=== PATIENT | male | born 1985 | race Caucasian/White ===

== ENCOUNTER 2019-07-11 02:31 | Emergency (ER) | payer OTHER ==
[2019-07-11] MEDS ORDERED: IBUPROFEN 600 MG TABLET (FP) PO ONE ×2 (02:53→02:57)
[2019-07-11 02:57] VITALS: BP 129/71; PULSE 105; TEMP 100.4; BMI 27.4
--- NOTE | 2019-07-11 03:22 | PDOC ---
Attending Attestation - Resident Resident Name: Mimi Man - ED Attending Attestation I have performed the following: I have examined & evaluated the patient, The case was reviewed & discussed with the resident, I agree w/resident's findings & plan - HPI HPI: 07/11/19 see resident hpi - Physicial Exam PE: 07/11/19 03:21 agree with resident exam - Medical Decision Making 07/11/19 03:21 33-year-old male with body aches fever and sore throat Plan for rapid strep with treatment if necessary Otherwise DC home with symptomatic care
--- NOTE | 2019-07-11 03:42 | PDOC ---
History of Present Illness - General Chief Complaint: Sore Throat Stated Complaint: SORE THROAT, FEVER Time Seen by Provider: 07/11/19 02:53 History Source: Patient Exam Limitations: No Limitations Past History - Past Medical History Allergies/Adverse Reactions: Allergies Allergy/AdvReac Type Severity Reaction Status Date / Time No Known Allergies Allergy Verified 07/11/19 02:47 Home Medications: Ambulatory Orders NK [No Known Home Medication] 07/11/19 Asthma: Yes COPD: No - Psycho Social/Smoking Cessation Hx Smoking History: Never smoked Have you smoked in the past 12 months: No Information on smoking cessation initiated: No Hx Alcohol Use: No Drug/Substance Use Hx: No *Physical Exam - Vital Signs Last Vital Signs Temp Pulse Resp BP Pulse Ox 100.4 F H 105 H 19 129/71 100 07/11/19 02:44 07/11/19 02:44 07/11/19 02:44 07/11/19 02:44 07/11/19 02:44 ED Treatment Course - Medications Given in the ED: ED Medications Discontinued Medications Generic Name Dose Route Start Last Admin Trade Name Thaddeus PRN Reason Stop Dose Admin Ibuprofen 600 mg 07/11/19 02:53 07/11/19 02:58 Motrin - PO 07/11/19 02:54 600 mg ONCE ONE Administration Discharge - Discharge Information Problems reviewed: Yes Clinical Impression/Diagnosis: Viral syndrome, Sore throat Condition: Good Disposition: HOME - Admission No - Follow up/Referral Referrals: [facility] [Provider Group] - Patient Discharge Instructions Patient Printed Discharge Instructions: DI for Viral Pharyngitis Additional Instructions: You were seen in the ER today for sore throat and fever. The results of your labs today were normal/showed. Please follow-up with your primary care doctor within 1-2 days to discuss your visit and make sure your symptoms have improved. Please return to the ER if you have any worsening pain, development of fevers or chills, loss of consciousness, inability to tolerate food or fluids , or any other concerns. - Post Discharge Activity Work/Back to School Note: Back to Work
[2019-07-11] MEDS ORDERED: DEXAMETHASONE LIQUID 0.5 MG/5 ML PO ONE (03:53)
[2019-07-11] MEDS ORDERED: DEXAMETHASONE SOD PHOSPHATE 10 MG/1 ML VIAL ONE (03:55)
== END 2019-07-11 04:18 | disposition home or self-care (01) ==
LOC: JER 02:31
DX: B34.9 Viral infection, unspecified (principal); J02.9 Acute pharyngitis, unspecified; J45.909 Unspecified asthma, uncomplicated
CPT/HCPCS: 87070; 87077; 87804; 87880; 99282-25